=== PATIENT | female | born 1980 | race Caucasian/White ===

== ENCOUNTER 2024-01-17 20:27 | Emergency (ER) | payer OTHER ==
[~2024-01-17] VITALS: Ht 167.6 cm; Wt 81.6 kg
[2024-01-17 20:34] VITALS: BP_SYST 118; PULSE 80; RESP 16; TEMP 97.7; O2SAT 96
[2024-01-17 21:25] VITALS: BP_SYST 118; PULSE 80; RESP 16; TEMP 97.7; O2SAT 96
== END 2024-01-17 21:25 | disposition home or self-care (01) ==
LOC: SED 20:27
DX: S61.031A Puncture wound without foreign body of right thumb without damage to nail, initial encounter (principal); W27.3XXA Contact with needle (sewing), initial encounter; Y93.89 Activity, other specified; Y92.89 Other specified places as the place of occurrence of the external cause; Y99.8 Other external cause status
CPT/HCPCS: 36415; 86704; 86706; 86803; 87340; 99283